=== PATIENT | male | born 1970 | race Caucasian/White ===

== ENCOUNTER 2025-01-04 07:27 | Observation (INO) | payer BC ==
[2025-01-02 09:36] LABS: BASOPHILS % 2.2 % (0.0-1.0); EOSINOPHILS % 5.7 % (0.0-6.0); LYMPHOCYTES % 27.6 % (18.0-39.1); MONOCYTES % 10.1 % (4.4-11.3); NEUTROPHILS % 53.9 % (38.7-80.0); RED CELL DISTRIBUTION WIDTH 13.0 % (11.7-14.4)
[2025-01-02 09:53] LABS: INR 0.82
[2025-01-02 09:56] LABS: EST GLOMERULAR FILTRATION RATE 70.0 ML/MIN (>=60)
[2025-01-04] VITALS (8 sets, daily range): BP systolic 138–155; BP diastolic 71–80; PULSE 74–97; RESP 18–20; TEMP 97.7–98.2; O2SAT 95–100
[~2025-01-04] VITALS: Ht 182.9 cm; Wt 131.1 kg
[~2025-01-04 07:27] MED LIST: ATORVASTATIN CA20 MG PO; FENOFIBRATE145 MG PO; GABAPENTIN300 MG PO; HYDROCHLOROTHIA50 MG PO; HYDROCODON-ACE1 EA12 PO; INDERAL LA60 MG PO; LOSARTAN POTASS25 MG PO; METFORMIN HCL500 MG PO; OMEPRAZOLE20 MG PO; SERTRALINE HCL100 MG PO; VITAMIN D3 PO
[2025-01-04] MEDS: SODIUM CHLORIDE 0.9% 250ML 250 ML ONE (08:40)
[2025-01-04] MEDS: Vancomycin IV 1 GM VIAL ONE (08:40)
[2025-01-04] MEDS: LACTATED RINGER'S 1,000 ML ONE (08:40)
[2025-01-04] MEDS ORDERED: SUCCINYLCHOLINE CHLORIDE 20 MG/ML 10ML VIAL ONE (08:44)
[2025-01-04] MEDS ORDERED: LIDOCAINE HCL 2% LOCAL INJ 5 ML SDV VIAL INJ ONE (08:45)
[2025-01-04] MEDS ORDERED: ROCURONIUM BROMIDE 1 ML IV ONE ×2 (08:45→09:45)
[2025-01-04] MEDS ORDERED: FENTANYL CITRATE/PF 100MCG/2 ML INJ ONE ×2 (08:45→11:22)
[2025-01-04] MEDS ORDERED: PROPOFOL IV EMULSION 10 MG/ML 20 ML VIAL ONE ×2 (08:45→09:32)
[2025-01-04] MEDS ORDERED: DEXAMETHASONE SOD PHOS INJ 4 MG/ML SDV ONE (09:46)
[2025-01-04] MEDS ORDERED: ONDANSETRON HCL INJ 2MG/ML 2ML 2 MG/ML VIAL ONE (09:46)
[2025-01-04] MEDS ORDERED: ACETAMINOPHEN 1000 MG/100 ML 100 ML IV ONE (09:55)
[2025-01-04] MEDS ORDERED: SUGAMMADEX SODIUM 200 MG/2 ML VIAL IV ONE (10:02)
[2025-01-04] MEDS ORDERED: PHENYLEPHRINE HCL 1% 10 MG/ML VIAL ONE (10:14)
[2025-01-04] MEDS ORDERED: ONDANSETRON HCL INJ 2MG/ML 2ML 2 MG/ML VIAL IV PRN ×2 (11:00→11:15)
[2025-01-04] MEDS ORDERED: OXYCODONE/ACETAMINOPHEN 5-325 1 EACH TABLET PO PRN ×2 (11:00→11:15)
[2025-01-04] MEDS ORDERED: PROMETHAZINE HCL (IM) 25 MG/ML VIAL IM PRN ×2 (11:00→11:15)
[2025-01-04] MEDS ORDERED: ACETAMINOPHEN 325 MG TAB PO PRN ×2 (11:00→11:15)
[2025-01-04] MEDS ORDERED: MAGNESIUM/ALUMINUM/SIMETHICONE 30 ML UDC PO PRN ×2 (11:00→11:15)
[2025-01-04] MEDS ORDERED: Morphine 10mg syringe 10 MG/ML INJ IM PRN (11:15)
[2025-01-04] MEDS ORDERED: CARISOPRODOL 350 MG TAB PO PRN (11:15)
[2025-01-04] MEDS ORDERED: HYDROMORPHONE 2MG/ML IV PRN (11:15)
[2025-01-04] MEDS ORDERED: LACTATED RINGER'S 1,000 ML IV SCH (11:15)
[2025-01-04] MEDS ORDERED: ZOLPIDEM TARTRATE 5 MG TAB PO PRN (11:15)
[2025-01-04] MEDS: FENTANYL CITRATE/PF 100MCG/2 ML INJ IV ONE (11:22)
[2025-01-04] MEDS: CARISOPRODOL 350 MG TAB PO ONE (11:56)
[2025-01-04] MEDS: OXYCODONE/ACETAMINOPHEN 5-325 1 EACH TABLET PO ONE (11:56)
[2025-01-04] MEDS ORDERED: SEVOFLURANE INHAL SOLN 250 ML PEN BTL ONE (12:34)
[2025-01-04] MEDS: GABAPENTIN 300 MG CAP PO SCH (14:19)
[2025-01-04] MEDS: HYDROMORPHONE 2MG/ML IV PRN (14:20)
[2025-01-04] MEDS: Vancomycin IV 1 GM in SODIUM CHLORIDE 0.9% 250ML 250 ML IV SCH (16:33)
[2025-01-04] MEDS: METFORMIN HCL 500 MG TAB PO SCH (16:34)
[2025-01-04] MEDS: SERTRALINE HCL 100 MG TAB PO SCH (20:58)
[2025-01-04] MEDS: ATORVASTATIN 20 MG TAB PO SCH (20:58)
[2025-01-04] MEDS: CARISOPRODOL 350 MG TAB PO PRN (21:04)
[2025-01-04] MEDS: ZOLPIDEM TARTRATE 5 MG TAB PO PRN (22:35)
[2025-01-05] VITALS: BP 148/91; PULSE 83; RESP 20; TEMP 97.9; O2SAT 100
[2025-01-05] MEDS: OXYCODONE/ACETAMINOPHEN 5-325 1 EACH TABLET PO PRN (02:21)
[2025-01-05 04:00] VITALS: BP 155/86; PULSE 81; RESP 20; TEMP 97.6; O2SAT 100
[2025-01-05 07:43] VITALS: PULSE 82; RESP 18; O2SAT 98
[2025-01-05] MEDS: PROPRANOLOL HCL 60 MG ER CAP PO SCH (08:28)
[2025-01-05] MEDS: PANTOPRAZOLE SOD 40 MG TABEC PO SCH (08:29)
[2025-01-05] MEDS: CHOLECALCIFEROL 1,000 UNIT TAB PO SCH (08:29)
[2025-01-05] MEDS: HYDROCHLOROTHIAZIDE 25 MG TAB PO SCH (08:29)
[2025-01-05] MEDS: FENOFIBRATE 145 MG TAB PO SCH (08:29)
[2025-01-05] MEDS: LOSARTAN POTASSIUM 25 MG TAB PO SCH (08:30)
[2025-01-05 09:08] VITALS: BP 148/91; PULSE 85; RESP 20; TEMP 97.6; O2SAT 98
== END 2025-01-05 09:45 | disposition home or self-care (01) ==
LOC: OR 07:27 → PACU V 11:25 → MED/SURG3 12:30
PROVIDERS: ADMIT Neurological Surgery; ATTEND Neurological Surgery
DX: M51.16 Intervertebral disc disorders with radiculopathy, lumbar region (principal); E11.9 Type 2 diabetes mellitus without complications; Z79.84 Long term (current) use of oral hypoglycemic drugs; I10 Essential (primary) hypertension; E78.5 Hyperlipidemia, unspecified; E66.01 Morbid (severe) obesity due to excess calories; Z68.39 Body mass index [BMI] 39.0-39.9, adult; Z72.0 Tobacco use; K21.9 Gastro-esophageal reflux disease without esophagitis; Z01.810 Encounter for preprocedural cardiovascular examination; Z01.812 Encounter for preprocedural laboratory examination; Z01.818 Encounter for other preprocedural examination
CPT/HCPCS: 36415 ×3; 63042; 71046; 72020; 80048; 82948 ×2; 85025; 85610; 85730; 86850; 86900; 88304; 93005; 94799 ×2; G0378 ×2; J0131; J0330; J1100; J1171 ×2; J2003; J2371; J2405; J2470; J2704; J3010; J3373 ×2; J7050 ×2; J7121